=== PATIENT | male | born 1950 | race Caucasian/White ===

== ENCOUNTER → 2017-02-03 | Outpatient (CLI) | payer BC | END | disposition home or self-care (01) | LOC: CDC 08:24 | DX: Z01.810 Encounter for preprocedural cardiovascular examination (principal); K40.20 Bilateral inguinal hernia, without obstruction or gangrene, not specified as recurrent | CPT/HCPCS: 93000 ==

== ENCOUNTER 2017-02-23 05:44 | Day surgery (SDC) | payer BC ==
[~2017-02-23] VITALS: Ht 180.3 cm; Wt 89.0 kg
[2017-02-23 06:20] VITALS: BP 132/77
[2017-02-23] MEDS ORDERED: PERCOCET 5/31 TABLET PO (11:01)
[2017-02-23] MEDS ORDERED: COLACE100 MG PO (11:01)
[2017-02-23 11:54] VITALS: BP 113/69
[2017-02-23 13:05] VITALS: BP 131/74
== END 2017-02-23 13:15 | disposition home or self-care (01) ==
LOC: SDC 05:44
DX: K40.20 Bilateral inguinal hernia, without obstruction or gangrene, not specified as recurrent (principal); K42.9 Umbilical hernia without obstruction or gangrene; E78.6 Lipoprotein deficiency; Z80.3 Family history of malignant neoplasm of breast; Z80.42 Family history of malignant neoplasm of prostate; Z81.8 Family history of other mental and behavioral disorders; N28.1 Cyst of kidney, acquired
CPT/HCPCS: C1727; C1781; J0330; J0690; J1100; J1170; J1885; J2405; J2710; J2765; J3010